=== PATIENT | male | born 1990 | race Two or more races ===

== ENCOUNTER 2019-01-16 07:53 | Emergency (ER) | payer SELFPAY ==
[~2019-01-16] VITALS: Ht 182.9 cm; Wt 93.4 kg
[2019-01-16 08:26] VITALS: BP 156/84
[2019-01-16] MEDS ORDERED: cefTRIAXone SODIUM 250 MG VL IM ONE (09:00)
[2019-01-16] MEDS ORDERED: AZITHROMYCIN 250 MG TAB PO ONE (09:00)
[2019-01-16 09:27] LABS: Urine Blood Normal /uL (Negative); Urine Specific Gravity 1.035 (1.001-1.035)
[2019-01-16 09:54] LABS: Urine WBC 1 /hpf (0 - 3)
[2019-01-16 10:35] LABS: Urine Bacteria NONE SEEN /hpf (None Seen)
== END 2019-01-16 09:54 | disposition home or self-care (01) ==
LOC: ER 07:53
DX: N39.0 Urinary tract infection, site not specified (principal)
CPT/HCPCS: 81001; 87491; 87591; 96372; 99283; J0696